=== PATIENT | female | born 1945 | race Caucasian/White ===

== ENCOUNTER 2017-07-13 05:16 | Inpatient (IN) | payer MEDICARE, BC ==
[2017-07-02 11:36] VITALS: BP 150/77
[~2017-07-13] VITALS: Ht 167.6 cm; Wt 93.4 kg
[~2017-07-13 05:16] MED LIST: ASPI-496 PO; CARV12.52 PO; CHOL2000 PO; CRAN405C PO; CYAN10005 PO; DICL1KIT14 TP; INSU100V11 SQ; IRON1TAB37 PO; LEVO100T5 PO; LISI40TA PO; METF500T4 PO; PRAV80TA2 PO
[2017-07-13] MEDS ORDERED: LACTATED RINGERS 1,000 ML IV SCH (05:30)
[2017-07-13] MEDS ORDERED: VANCOMYCIN PER PHARMACY MC ONE (05:30)
[2017-07-13] MEDS ORDERED: LIDOCAINE-MPF 1%, 2ML INFIL ONE (05:30)
[2017-07-13] MEDS ORDERED: VANCOMYCIN 1,300 MG in SODIUM CHLORIDE 0.9% 250 ML IV ONE (06:00)
[2017-07-13] MEDS ORDERED: CLINDAMYCIN 150 MG/ML, 6ML ONE (06:18)
[2017-07-13] MEDS ORDERED: CEFAZOLIN 1,000 MG ONE ×2 (06:25)
[2017-07-13] MEDS ORDERED: PROPOFOL 10 MG/ML, 20ML ONE (06:25)
[2017-07-13] MEDS ORDERED: ROCURONIUM 10MG/ML,5ML ONE (06:25)
[2017-07-13] MEDS ORDERED: FENTANYL PF 100 MCG/2ML ONE (06:29)
[2017-07-13] MEDS ORDERED: NEOSTIGMINE 1 MG/ML, 10ML ONE (06:46)
[2017-07-13] MEDS: SODIUM CHLORIDE 0.9% 1,000 ML IV SCH ×2 (06:46→14:57)
[2017-07-13] MEDS ORDERED: ONDANSETRON 2MG/ML, 2ML ONE (06:46)
[2017-07-13] MEDS ORDERED: GLYCOPYRROLATE 0.2MG/1ML, 5ML ONE (06:46)
[2017-07-13] MEDS: HYDROcodone/APAP 10/325 MG TABLET PO SCH ×4 (07:00→20:28)
[2017-07-13] MEDS ORDERED: MAGNESIUM HYDROXIDE 8%, 30ML UDC PO PRN (07:00)
[2017-07-13] MEDS ORDERED: morphine SULFATE 10 MG/ML, 1ML IV PRN ×2 (07:00→07:30)
[2017-07-13] MEDS ORDERED: ONDANSETRON 2MG/ML, 2ML IV PRN (07:00)
[2017-07-13] MEDS ORDERED: SENNA/DOCUSATE TABLET PO PRN (07:00)
[2017-07-13] MEDS ORDERED: ACETAMINOPHEN 325 MG TABLET PO PRN ×2 (07:00→07:30)
[2017-07-13] MEDS ORDERED: PROMETHAZINE 25 MG/ML, 1ML IM PRN (07:00)
[2017-07-13] MEDS ORDERED: BISACODYL 10 MG SUPP PR PRN (07:00)
[2017-07-13] MEDS ORDERED: BUPIVACAINE/PF 0.5% ONE (07:27)
[2017-07-13] MEDS ORDERED: METOCLOPRAMIDE 5 MG/ML, 2ML ONE (07:27)
[2017-07-13] MEDS ORDERED: ONDANSETRON 2MG/ML, 2ML IVPush PRN (07:30)
[2017-07-13] MEDS ORDERED: METOPROLOL 1 MG/ML, 5ML IV PRN (07:30)
[2017-07-13] MEDS ORDERED: FENTANYL PF 100 MCG/2ML IV PRN (07:30)
[2017-07-13] MEDS ORDERED: ALBUTEROL SULFATE 2.5 MG/3 ML NPPB PRN (07:30)
[2017-07-13] MEDS ORDERED: PROMETHAZINE 25 MG/ML, 1ML IV PRN (07:30)
[2017-07-13] MEDS ORDERED: OXYcodone 5 MG/5 ML ORAL.SOL UDC PO PRN (07:30)
[2017-07-13] MEDS ORDERED: hydrALAzine 20 MG/ML, 1ML IV PRN (07:30)
[2017-07-13] MEDS ORDERED: LABETALOL 5MG/ML, 20ML IV PRN (07:30)
[2017-07-13] MEDS ORDERED: EPHEDRINE 50 MG/ML, 1ML IVPush PRN (07:30)
[2017-07-13] MEDS: CARVEDILOL 12.5 MG TABLET PO SCH ×2 (09:00→20:28)
[2017-07-13 10:00] VITALS: BP 118/54
[2017-07-13] MEDS: metFORMIN 500 MG TABLET PO SCH ×2 (11:23→20:28)
[2017-07-13] MEDS: DOCUSATE 100 MG CAPSULE PO SCH ×2 (11:23→20:27)
[2017-07-13] MEDS: ASPIRIN 81 MG TABLET EC PO SCH (11:23)
[2017-07-13] MEDS: MULTIVITAMINS/MINERALS TABLET PO SCH (11:23)
[2017-07-13] MEDS: CEFAZOLIN PMX 2GM/50ML 50 ML IVPB SCH ×2 (12:38→20:27)
[2017-07-13 13:30] VITALS: BP 124/68
[2017-07-13] MEDS ORDERED: CEFAZOLIN PMX 2GM/50ML 50 ML IVPB SCH (15:00)
[2017-07-13] MEDS ORDERED: CARVEDILOL 6.25 MG TABLET ONE (20:26)
[2017-07-13 20:32] VITALS: BP 125/64
[2017-07-13] MEDS ORDERED: INSULIN NPH HUMAN 100 UNIT/ML, 3ML VIAL SQ-INSULIN SCH (21:00)
[2017-07-14] MEDS: HYDROcodone/APAP 10/325 MG TABLET PO SCH ×3 (00:23→08:28)
[2017-07-14 00:24] VITALS: BP 101/62
[2017-07-14] MEDS: SODIUM CHLORIDE 0.9% 1,000 ML IV SCH (02:46)
[2017-07-14 04:13] VITALS: BP 88/59
[2017-07-14] MEDS: CEFAZOLIN PMX 2GM/50ML 50 ML IVPB SCH (04:21)
[2017-07-14] MEDS ORDERED: LEVOTHYROXINE 100 MCG TABLET PO SCH (06:30)
[2017-07-14] MEDS ORDERED: CARVEDILOL 6.25 MG TABLET ONE (08:25)
[2017-07-14] MEDS: DOCUSATE 100 MG CAPSULE PO SCH (08:29)
[2017-07-14] MEDS: metFORMIN 500 MG TABLET PO SCH (08:29)
[2017-07-14] MEDS: MULTIVITAMINS/MINERALS TABLET PO SCH (08:29)
[2017-07-14] MEDS: ASPIRIN 81 MG TABLET EC PO SCH (08:29)
[2017-07-14] MEDS: CARVEDILOL 12.5 MG TABLET PO SCH (08:32)
[2017-07-14 09:00] VITALS: BP 104/73
[2017-07-14] MEDS ORDERED: KETOROLAC 30 MG/1 ML IVPush ONE (10:30)
== END 2017-07-14 12:00 | disposition home or self-care (01) | DRG 483 ==
LOC: ORIP 05:16 → 4NOR 09:35 → DCLOUNGE 07-14 11:39
PROVIDERS: ADMIT Orthopaedic Surgery; ATTEND Orthopaedic Surgery
PROC: 0LQ10ZZ Repair Right Shoulder Tendon, Open Approach (ICD-10-PCS; 2017-07-13)
PROC: 0RRJ00Z Replacement of Right Shoulder Joint with Reverse Ball and Socket Synthetic Substitute, Open Approach (ICD-10-PCS; principal; 2017-07-13 07:00)
DX: M19.011 Primary osteoarthritis, right shoulder (principal); E11.9 Type 2 diabetes mellitus without complications; E03.9 Hypothyroidism, unspecified; I10 Essential (primary) hypertension; E66.9 Obesity, unspecified; E78.00 Pure hypercholesterolemia, unspecified; M75.101 Unspecified rotator cuff tear or rupture of right shoulder, not specified as traumatic; Z88.0 Allergy status to penicillin; Z88.5 Allergy status to narcotic agent; Z88.1 Allergy status to other antibiotic agents; Z98.51 Tubal ligation status; Z90.721 Acquired absence of ovaries, unilateral; Z79.899 Other long term (current) drug therapy; Z68.33 Body mass index [BMI] 33.0-33.9, adult
CPT/HCPCS: 82962; C1713; C1776; J0690; J1815; J1885; J2405; J2704; J2710; J3010; J3370; J3490; C1769; J2270; J2765; J7050; J7120

== ENCOUNTER → 2020-09-24 | Outpatient (CLI) | payer MEDICARE, BC ==
[~2020-09-24] MED LIST changes: +APIX5TAB PO; +CARV25TA12 PO; +CETI10TA32 PO; +CYAN-27 PO; -CYAN10005 PO; +FERR324T5 PO; +FLEC100T PO; +LEVO75TA5 PO; -LISI40TA PO; +LISI40TA9 PO; +LISI5TAB7 PO; +METF500T17 PO; -METF500T4 PO; +NPH,100V SC; +PITA4TAB2 PO; +SEMA0.25 SQ; +TRAM50TA2 PO
[2020-09-24 15:25] LABS: BASOPHILS % (AUTO) 1 % (0-1); EOSINOPHILS % (AUTO) 3 % (1-7); LYMPHOCYTES % (AUTO) 27 % (22-44); MEAN CORPUSCULAR HEMOGLOBIN 31.2 pg (27.0-34.8); MEAN PLATELET VOLUME 7.8 fL (7.4-10.4); MONOCYTES % (AUTO) 10 % (2-9); NEUTROPHILS % (AUTO) 60 % (42-75); PLATELET COUNT 257 x10^3/uL (130-400); RED BLOOD COUNT 4.05 x10^6/uL (3.82-5.3); RED CELL DISTRIBUTION WIDTH 14.8 % (9.6-15.2)
[2020-09-24 15:34] LABS: INTERNATIONAL NORMALIZED RATIO 1.09 (0.93-1.1); PROTHROMBIN TIME 11.6 Seconds (9.6-11.5)
[2020-09-24 15:39] LABS: ALANINE AMINOTRANSFERASE 18 U/L (12-78); ALBUMIN 3.5 g/dL (3.4-5.0); CALCIUM 9.8 mg/dL (8.5-10.1); CHLORIDE 113 mmol/L (98-107); CREATININE 1.01 mg/dL (0.55-1.02)
[2020-09-24 15:41] LABS: ALKALINE PHOSPHATASE 77 U/L (45-117); BILIRUBIN,TOTAL 0.6 mg/dL (0.2-1.0); TOTAL PROTEIN 7.2 g/dL (6.4-8.2)
[2020-09-24 15:54] LABS: ANION GAP 3 mmol/L (5-15)
== END | disposition home or self-care (01) ==
LOC: STAR 14:05
PROVIDERS: ATTEND Orthopaedic Surgery
DX: Z01.818 Encounter for other preprocedural examination (principal)
CPT/HCPCS: 36415; 80053; 83036; 85025; 85610; 85730; 87081

== ENCOUNTER 2020-10-01 06:24 | Day surgery (SDC) | payer MEDICARE, BC ==
[~2020-10-01] VITALS: Ht 167.6 cm; Wt 103.5 kg
[2020-10-01 06:52] VITALS: BP 99/64
[2020-10-01] MEDS ORDERED: LACTATED RINGERS 1,000 ML IV SCH (07:00)
[2020-10-01] MEDS ORDERED: CHLORHEXIDINE 15 ML UDC PO ONE (07:00)
[2020-10-01] MEDS ORDERED: TRANEXAMIC ACID 100 MG/ML, 10ML ONE (07:03)
[2020-10-01] MEDS ORDERED: EPINEPHRINE 1 MG/ML, 1ML ONE ×2 (07:03→10:24)
[2020-10-01] MEDS ORDERED: BUPIVACAINE/PF 0.5% ONE (07:03)
[2020-10-01] MEDS ORDERED: MIDAZOLAM 1 MG/ML, 2ML ONE (07:31)
[2020-10-01] MEDS ORDERED: FENTANYL PF 250 MCG/5ML ONE (07:31)
[2020-10-01] MEDS ORDERED: hydrALAzine 20 MG/ML, 1ML IV PRN (08:30)
[2020-10-01] MEDS ORDERED: DIPHENHYDRAMINE 50 MG/ML, 1ML IVPush PRN (08:30)
[2020-10-01] MEDS ORDERED: HYDROmorphone 1 MG/ML, 1ML INJ IVPush PRN (08:30)
[2020-10-01] MEDS ORDERED: HALOPERIDOL 5 MG/ML IV PRN (08:30)
[2020-10-01] MEDS ORDERED: ACETAMINOPHEN 325 MG TABLET PO PRN (08:30)
[2020-10-01] MEDS ORDERED: MEPERIDINE/PF 25MG/0.5ML IVPush PRN (08:30)
[2020-10-01] MEDS ORDERED: LABETALOL 5MG/ML, 20ML IV PRN (08:30)
[2020-10-01] MEDS ORDERED: OXYcodone 5 MG/5 ML ORAL.SOL UDC PO PRN (08:30)
[2020-10-01] MEDS ORDERED: PROMETHAZINE 25 MG/ML, 1ML IVPush PRN (08:30)
[2020-10-01] MEDS ORDERED: PHENYLEPHRINE 10 MG/ML ONE (09:55)
[2020-10-01] MEDS ORDERED: VASOPRESSIN 20 UNIT/ML, 1ML ONE (10:05)
[2020-10-01] MEDS ORDERED: EPHEDRINE 50 MG/ML, 1ML ONE (10:05)
[2020-10-01] MEDS ORDERED: ROPIvacaine/PF 0.5%, 30 ML ONE (10:23)
[2020-10-01] MEDS ORDERED: ONDANSETRON 2MG/ML, 2ML ONE (10:24)
[2020-10-01] MEDS ORDERED: NEOSTIGMINE 1 MG/ML, 10ML ONE (10:24)
[2020-10-01] MEDS ORDERED: PROPOFOL 10 MG/ML, 20ML ONE (10:24)
[2020-10-01] MEDS ORDERED: ROCURONIUM 10MG/ML,5ML ONE (10:24)
[2020-10-01] MEDS ORDERED: CEFAZOLIN 1,000 MG ONE (10:24)
[2020-10-01] MEDS ORDERED: DEXAMETHASONE 4 MG/ML, 1ML ONE (10:24)
[2020-10-01] MEDS ORDERED: GLYCOPYRROLATE 0.2MG/1ML, 5ML ONE (10:24)
[2020-10-01] MEDS ORDERED: SUCCINYLCHOLINE 20 MG/ML, 10ML ONE (10:24)
[2020-10-01] MEDS ORDERED: OXYcodone 5 MG/5 ML ORAL.SOL UDC ONE (11:30)
[2020-10-01] MEDS ORDERED: FENTANYL PF 100 MCG/2ML ONE (11:30)
[2020-10-01] MEDS ORDERED: ACETAMINOPHEN 650 MG/20.3 ML UDC ONE (11:31)
[2020-10-01] MEDS: FENTANYL PF 100 MCG/2ML IV PRN ×2 (11:33→12:00)
[2020-10-01] MEDS ORDERED: PROMETHAZINE 25 MG/ML, 1ML ONE (11:54)
[2020-10-01] MEDS ORDERED: KETOROLAC 30 MG/1 ML ONE (12:13)
[2020-10-01] MEDS ORDERED: MEPERIDINE/PF 25MG/ML,1ML ONE (12:27)
[2020-10-01] MEDS ORDERED: KETOROLAC 30 MG/1 ML IVPush SCH (12:30)
[2020-10-01] MEDS ORDERED: METHOCARBAMOL 1000MG/10 ML IV ONE (12:30)
[2020-10-01] MEDS ORDERED: METHOCARBAMOL 1,000 MG in DEXTROSE 5% 100 ML IV ONE (13:00)
== END 2020-10-01 15:50 | disposition home or self-care (01) ==
LOC: OUT 06:24
PROVIDERS: ATTEND Orthopaedic Surgery
DX: M17.11 Unilateral primary osteoarthritis, right knee (principal); M25.761 Osteophyte, right knee; E11.9 Type 2 diabetes mellitus without complications; E78.5 Hyperlipidemia, unspecified; I48.91 Unspecified atrial fibrillation; G47.33 Obstructive sleep apnea (adult) (pediatric); Z79.899 Other long term (current) drug therapy; Z88.0 Allergy status to penicillin; Z88.5 Allergy status to narcotic agent
CPT/HCPCS: 27447; 64447; 82962; 97110; 97162; C1713; C1776; J0171; J0330; J0690; J1100; J1885; J2175; J2250; J2370; J2405; J2550; J2704; J2710; J2795; J2800; J3010